=== PATIENT | male | born 1975 | race Caucasian/White ===

== ENCOUNTER 2017-06-14 12:05 | Emergency (ER) | payer OTHER, SELFPAY ==
[2017-06-14 12:19] VITALS: BP 163/99; PULSE 60; RESP 16; TEMP 37.1; O2SAT 99; BMI 29.0
--- NOTE | 2017-06-14 12:47 | HMH.EDUTC ---
[facility] [place] Disposition Clinical Impression: Low back pain Qualifiers: Chronicity: unspecified Back pain laterality: midline Sciatica presence: without sciatica Qualified Code(s): M54.5 - Low back pain Disposition: Home, Self-Care Condition on Discharge: Good Instructions: DI for Chronic Pain -- Adult, Low Back Pain, DI for Low Back Pain Additional Instructions: Take medication as prescribed FOllow up with family doctor if symptoms worsen Return if needed Prescriptions: Cyclobenzaprine HCl [Flexeril 10mg tablet] 10 mg PO TID PRN #20 tab PRN Reason: Muscle Pain Etodolac [Etodolac 200mg Cap] 200 mg PO Q6H PRN #20 cap PRN Reason: Moderate Pain Referrals: Eliseo Ruggiero MD [Primary Care Provider] - Saulo Weeks MD [Staff Physician] - Time of Disposition: 13:59 Medical Decision Making - Medical Records Medical records reviewed: Yes: I reviewed the patient's medical records. Vital Signs: 06/14/17 12:19 Temperature 98.7 F Temperature Source Temporal Artery Scan Pulse Rate [Right] 60 Respiratory Rate 16 Blood Pressure [Right Arm] 163/99 Blood Pressure Mean [Right Arm] 120 Blood Pressure Source [Right Arm] Automatic Cuff Blood Pressure Position [Right Arm] Sitting 02 Sat by Pulse Oximetry 99 Oxygen Delivery Method Room Air Orders (Tests/Meds): ED MEDICATIONS Discontinued Medications Generic Name Dose Route Start Last Admin Trade Name Freq PRN Reason Stop Dose Admin Ketorolac Tromethamine 60 mg 06/14/17 13:00 06/14/17 13:25 Toradol 60mg/2ml Vial IM 06/14/17 13:01 60 mg ONCE ONE Administration Methylprednisolone Sodium Succinate 125 mg 06/14/17 13:00 06/14/17 13:25 Solu-Medrol 125mg/2ml Vial IM 06/14/17 13:01 125 mg ONCE ONE Administration ORDERS Category Date Time Status XR lumbar spine min 4V Stat Exams 06/14/17 13:00 Taken - Radiology Data #1 Image(s): L-Spine Image Reviewed: Yes I reviewed the patient's radiology image w/the ED provider Preliminary Findings: No Fracture Seen - Salomon Inquiry Pt receiving controlled substance: No Salomon was queried for this patient: No - Reevaluation(s) Time: 13:25 [facility] [place] HPI - General Stated complaint: back pain Mode of Arrival: Ambulatory Source of Information: Patient Limitations: No Limitations Description of Symptoms (Recalled from Triage Doc. 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 State that he has had this pain before about a year ago and was given Steriod shot and it got better Now it has returned - Related Data Previous Rx's Medication Instructions Recorded Cyclobenzaprine HCl [Flexeril 10mg 10 mg PO TID PRN #20 tab 06/14/17 tablet] Etodolac [Etodolac 200mg Cap] 200 mg PO Q6H PRN #20 cap 06/14/17 Allergies Allergy/AdvReac Type Severity Reaction Status Date / Time No Known Allergies Allergy Verified 06/14/17 12:23 - Worker's Comp Is this a Worker's Comp case?: No [facility] History I have reviewed the patient's past medical history: Yes - *Social History Alcohol Intake: never - Psychiatric History Expresses thoughts of harming self/others: None Suicide Plan Description: No Plan ROS Obtained: Yes All systems reviewed & no additional complaints - Musculoskeletal Musculoskeletal: Reports back pain Physical Exam - General General appearance: alert, in no apparent distress - Respiratory Respiratory exam: Present: normal lung sounds bilaterally. Absent: respiratory distress - Cardiovascular Cardiovascular exam: Present: regular rate, normal rhythm. Absent: JVD
--- NOTE | 2017-06-14 12:55 | ED_ITS ---
[facility] [place] Impression: Low back pain Qualifiers: Chronicity: unspecified Back pain laterality: midline Sciatica presence: without sciatica Qualified Code(s): M54.5 - Low back pain Disposition: Home, Self-Care Condition on Discharge: Good Instructions: DI for Chronic Pain -- Adult, Low Back Pain, DI for Low Back Pain Additional Instructions: Take medication as prescribed FOllow up with family doctor if symptoms worsen Return if needed Prescriptions: Cyclobenzaprine HCl [Flexeril 10mg tablet] 10 mg PO TID PRN #20 tab PRN Reason: Muscle Pain Etodolac [Etodolac 200mg Cap] 200 mg PO Q6H PRN #20 cap PRN Reason: Moderate Pain Referrals: Eliseo Ruggiero MD [Primary Care Provider] - Saulo Weeks MD [Staff Physician] - Time of Disposition: 13:59 Medical Decision Making - Medical Records Medical records reviewed: Yes: I reviewed the patient's medical records. Vital Signs: 06/14/17 12:19 Temperature 98.7 F Temperature Source Temporal Artery Scan Pulse Rate [Right] 60 Respiratory Rate 16 Blood Pressure [Right Arm] 163/99 Blood Pressure Mean [Right Arm] 120 Blood Pressure Source [Right Arm] Automatic Cuff Blood Pressure Position [Right Arm] Sitting 02 Sat by Pulse Oximetry 99 Oxygen Delivery Method Room Air Orders (Tests/Meds): ED MEDICATIONS Discontinued Medications Generic Name Dose Route Start Last Admin Trade Name Freq PRN Reason Stop Dose Admin Ketorolac Tromethamine 60 mg 06/14/17 13:00 06/14/17 13:25 Toradol 60mg/2ml Vial IM 06/14/17 13:01 60 mg ONCE ONE Administration Methylprednisolone Sodium Succinate 125 mg 06/14/17 13:00 06/14/17 13:25 Solu-Medrol 125mg/2ml Vial IM 06/14/17 13:01 125 mg ONCE ONE Administration ORDERS Category Date Time Status XR lumbar spine min 4V Stat Exams 06/14/17 13:00 Taken - Radiology Data #1 Image(s): L-Spine Image Reviewed: Yes I reviewed the patient's radiology image w/the ED provider Preliminary Findings: No Fracture Seen - Salomon Inquiry Pt receiving controlled substance: No Salomon was queried for this patient: No - Reevaluation(s) Time: 13:25 [facility] [place] - General Stated complaint: back pain Mode of Arrival: Ambulatory Source of Information: Patient Limitations: No Limitations Description of Symptoms (Recalled from Triage Doc. 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 State that he has had this pain before about a year ago and was given Steriod shot and it got better Now it has returned - Related Data Previous Rx's Medication Instructions Recorded Cyclobenzaprine HCl [Flexeril 10mg 10 mg PO TID PRN #20 tab 06/14/17 tablet] Etodolac [Etodolac 200mg Cap] 200 mg PO Q6H PRN #20 cap 06/14/17 Allergies Allergy/AdvReac Type Severity Reaction Status Date / Time No Known Allergies Allergy
--- NOTE | 2017-06-14 13:00 | XR_ITS ---
XR lumbar spine min 4V Ordering Physician: Aditi Frod Patient Age: 42 years: Male HISTORY: ITS.REASON: low back pain Low back pain mainly midline on the left side on off one year. TECHNIQUE: 5 view lumbar spine COMPARISON :None available FINDINGS No acute fracture or findings of the lumbar spine. The disc spaces are fairly well-maintained throughout the lumbar spine when all images are reviewed . Pedicles, transverse processes SI joints intact. Smaller measuring ribs at T12. There is minor wedge configuration at L1 and T12 vertebral which appears old nature and could be merely congenital wedging rather than reflection of old compression fractures trauma... However History Correlation required. No prior studies for comparison. These features along along with mild disc space narrowing at T 12/L1 yields some minor accentuated kyphosis at thoracolumbar junction. Early marginal osteophytes most evident at T11, T12-L1. No spondylolysis nor listhesis. SI joints unremarkable. IMPRESSION: No acute fracture or findings. Mild disc space narrowing T12/L1. This along with minimal wedge configuration at T 12 & L1 vertebral slight accentuates kyphosis through the thoracolumbar junction. The minor wedging at T12 and L1 appears old and not recent. Could merely be congenital feature or less likely reflection of old trauma.
[2017-06-14 14:08] VITALS: BP 142/88; PULSE 70; RESP 18; TEMP 36.9
== END 2017-06-14 14:10 | disposition home or self-care (01) ==
PROVIDERS: Emergency Provider Nurse Practitioner; Family Provider Family Medicine; PCP Family Medicine
DX: M54.5 Low back pain (principal); M54.6 Pain in thoracic spine
CPT/HCPCS: 72110; 96372; 99202

== ENCOUNTER 2017-06-22 09:25 | Emergency (ER) | payer OTHER, SELFPAY ==
[2017-06-22 09:45] VITALS: BP 156/88; PULSE 95; RESP 20; TEMP 36.9; O2SAT 97; BMI 29.0
--- NOTE | 2017-06-22 10:10 | HMH.EDUTC ---
[facility] [place] Disposition Clinical Impression: Non-traumatic mid back pain Abdominal pain Qualifiers: Abdominal location: unspecified location Qualified Code(s): R10.9 - Unspecified abdominal pain Disposition: Still a Patient Condition on Discharge: Fair Time of Disposition: 10:36 (ER bed 11) Medical Decision Making Vital Signs: 06/22/17 09:45 Temperature 98.4 F Temperature Source Temporal Artery Scan Pulse Rate [Right Radial] 95 H Respiratory Rate 20 Blood Pressure [Right Arm] 156/88 Blood Pressure Mean [Right Arm] 110 02 Sat by Pulse Oximetry 97 Oxygen Delivery Method Room Air Orders (Tests/Meds): ORDERS Category Date Time Status CT abdomen pelvis w con Stat Cat Scan 06/22/17 10:[address] abdomen pelvis w con Stat Cat Scan 06/22/17 10:28 Stop Req Amylase Stat Lab 06/22/17 10:27 Ordered Complete Blood Count Auto Diff Stat Lab 06/22/17 10:27 Ordered Comprehensive Metabolic Panel Stat Lab 06/22/17 10:27 Ordered Lipase Stat Lab 06/22/17 10:27 Ordered Urinalysis and Microscopic Stat Lab 06/22/17 10:27 Uncollected - Physician Consults Physician Consulted: Dr. Evans, ER MD Time: 10:35 Reason -: Pt condition Comment/Response: Discussed PMHx, HPI, current exam. Transfer to ER for abdominal pain evaluation. Pt agreeable. room 11 available. Pt assisted over by me, placed in room 11, unable to urinate at this time. Candy aware pt in room. - Salomon Inquiry Pt receiving controlled substance: No [facility] [place] HPI - General Stated complaint: Back Hurting,knot on side Time Seen by Provider: 06/22/17 10:11 Mode of Arrival: Family Vehicle Source of Information: Patient Limitations: No Limitations Description of Symptoms (Recalled from Triage Doc. by RN): pt c/o chronic back pain and knot on the left side of his stomach. HEENT Symptoms (Recalled from RN notes): No Resp Symptoms (Recalled from RN notes): No Skin Symptoms (Recalled from RN notes): No MS Symptoms (Recalled from RN notes): Yes (chronic back pain, knot on left stomach) Functional Status (Recalled from RN notes): na - History of Present Illness Provider Complaint: c/o persistant nontraumatic left lower back pain x 2 weeks now. Started 2 weeks ago with no known injury. progressed. Was seen one week ago. Reports xray negative and dx muscular. Antiinflammatories, muscle relaxers, icy hot and heating pad not relieving or even improving pain. Worse with movement and laying down. Thursday, 5 days ago, noticed swelling left side of abdomen. Has worsened. Very painful as well. No additional treatment other than listed. - Related Data Previous Rx's Medication Instructions Recorded Cyclobenzaprine HCl [Flexeril 10mg 10 mg PO TID PRN #20 tab 06/14/17 tablet] Etodolac [Etodolac 200mg Cap] 200 mg PO Q6H PRN #20 cap 06/14/17 Allergies Allergy/AdvReac Type Severity Reaction Status Date / Time No Known Allergies Allergy Verified 06/14/17 12:23 - Worker's Comp Is this a Worker's Comp case?: No [facility] History I have reviewed the patient's past medical history: Yes (denies PMHx) Medical History: Denies:: Cancer, Diabetes Mellitus Type 1, Diabetes Mellitus Type 2, MRSA Other Surgeries: Yes: Other (denies abdominal surgeries) Amputation: No - Social History Smoking Status: Never smoker Alcohol Intake: never - Psychiatric History Expresses thoughts of harming self/others: None Suicide Plan Description: No Plan ROS Obtained: Yes Systems reviewed as appropriate & no additional complaints - Constitutional Constitutional: Denies fever(s), Denies poor appetite - Cardiovascular Cardiovascular: Denies chest pain, Denies irregular heart rhythm - Respiratory Respiratory: No cough, No dyspnea - Gastrointestinal Gastrointestingal: Reports: as per HPI. Denies: change in bowel habits, change in stool character, coffee ground emesis, vomiting blood, bright red blood in stools, black, tarry stools, nausea, vomiting - Genitourinary
--- NOTE | 2017-06-22 10:28 | CT_ITS ---
CT abdomen pelvis w con Ordering Physician: Flash Melgoza Patient Age: 42 years: Male HISTORY: ITS.REASON: left flank painswelling and fullness overlying the left flank. TECHNIQUE: Helical CT scanning performed the abdomen pelvis following 75 cc [id number]. Early portal venous phase images followed x 7 minutes m delayed imaging performed COMPARISON :Plain films lumbar spine 06/14/2017 FINDINGS . Mild atelectasis at the posterior lung bases right greater than left. Heart normal size. Calcified granuloma at the left lung base Abdomen: Liver. Low-density area just to the right of the falciform ligament attachment noted measuring 13 mm. Most likely reflecting area of focal fatty infiltration which is commonly encountered here at this specific site. This area fills in no longer evident on delayed images. . Spleen appears mildly elongated 15 cm length Pancreas is unremarkable. Adrenals unremarkable. Gallbladder. No calcified gallstones. Most likely merely septations towards the neck of the gallbladder seen on axial image 39, 41. Difficult to exclude minimal debris or sludge here. No bili ductal dilatation. Right kidney. Benign appearing cyst 2.6 x 3.5 cm extending from the anterior aspect of the mid right kidney. . GI tract. Minimal fluid throughout the small bowel. No bowel dilatation or obstruction. Large bowel with mild stool throughout. Upper normal wall thickness descending colon most likely reflecting lack of distention. No evidence of appendicitis. Appendix normal Slight increased fat left inguinal canal but no definitive bowel containing hernia. Stomach. Moderate contents in stomach including two 2.5cm Linear structures are seen at proximal stomach. Ingested food material of some form Urinary bladder, seminal vesicles and percent prostate with no significant appearing findings. Minimal calcification prostate. No retroperitoneal nor mesenteric adenopathy. T12/L1 disc space narrowing with slight irregularity at the posterior superior corner of L1 at midline which slightly indents anterior aspect of thecal sac.... Mild wedge configuration at L1 and T12 may reflect old trauma. At T11/12 is mild disc bulge and possible mild disc protrusion leftward indenting anterior thecal sac IMPRESSION No acute findings abdomen pelvis Minor incidental observations as in text.: ..... 3.6 cm most likely benign-appearing renal cyst ... Borderline/mild splenomegaly 15 cm length ... T11/12 with leftward disc bulge & possible minor protrusion to the left. ....Disc space Narrowing minimal observations at T12/L1 .
[2017-06-22 10:33] VITALS: BP 140/87; PULSE 84; RESP 16; TEMP 36.5; O2SAT 98; BMI 29.0
--- NOTE | 2017-06-22 10:36 | ED_ITS ---
[facility] Disposition Clinical Impression: Non-traumatic mid back pain Abdominal pain Qualifiers: Abdominal location: unspecified location Qualified Code(s): R10.9 - Unspecified abdominal pain Disposition: Still a Patient Condition on Discharge: Fair Time of Disposition: 10:36 (ER bed 11) Medical Decision Making Vital Signs: 06/22/17 09:45 Temperature 98.4 F Temperature Source Temporal Artery Scan Pulse Rate [Right Radial] 95 H Respiratory Rate 20 Blood Pressure [Right Arm] 156/88 Blood Pressure Mean [Right Arm] 110 02 Sat by Pulse Oximetry 97 Oxygen Delivery Method Room Air Orders (Tests/Meds): ORDERS Category Date Time Status CT abdomen pelvis w con Stat Cat Scan 06/22/17 10:[address] abdomen pelvis w con Stat Cat Scan 06/22/17 10:28 Stop Req Amylase Stat Lab 06/22/17 10:27 Ordered Complete Blood Count Auto Diff Stat Lab 06/22/17 10:27 Ordered Comprehensive Metabolic Panel Stat Lab 06/22/17 10:27 Ordered Lipase Stat Lab 06/22/17 10:27 Ordered Urinalysis and Microscopic Stat Lab 06/22/17 10:27 Uncollected - Physician Consults Physician Consulted: Dr. Evans, ER MD Time: 10:35 Reason -: Pt condition Comment/Response: Discussed PMHx, HPI, current exam. Transfer to ER for abdominal pain evaluation. Pt agreeable. room 11 available. Pt assisted over by me, placed in room 11, unable to urinate at this time. Candy aware pt in room. - Salomon Inquiry Pt receiving controlled substance: No [facility] HPI - General Stated complaint: Back Hurting,knot on side Time Seen by Provider: 06/22/17 10:11 Mode of Arrival: Family Vehicle Source of Information: Patient Limitations: No Limitations Description of Symptoms (Recalled from Triage Doc. by RN): pt c/o chronic back pain and knot on the left side of his stomach. HEENT Symptoms (Recalled from RN notes): No Resp Symptoms (Recalled from RN notes): No Skin Symptoms (Recalled from RN notes): No MS Symptoms (Recalled from RN notes): Yes (chronic back pain, knot on left stomach) Functional Status (Recalled from RN notes): na - History of Present Illness Provider Complaint: c/o persistant nontraumatic left lower back pain x 2 weeks now. Started 2 weeks ago with no known injury. progressed. Was seen one week ago. Reports xray negative and dx muscular. Antiinflammatories, muscle relaxers , icy hot and heating pad not relieving or even improving pain. Worse with movement and laying down. Thursday, 5 days ago, noticed swelling left side of abdomen. Has worsened. Very painful as well. No additional treatment other than listed. - Related Data Previous Rx's Medication Instructions Recorded Cyclobenzaprine HCl [Flexeril 10mg 10 mg PO TID PRN #20 tab 06/14/17 tablet] Etodolac [Etodolac 200mg Cap] 200 mg PO Q6H PRN #20 cap 06/14/17 Allergies Allergy/AdvReac Type Severity Reaction Status Date / Time No Known Allergies Allergy Verified 06/14/17 12:23 - Worker's Comp Is this a Worker's Comp case?: No [facility] History I have reviewed the patient's past medical history: Yes (denies PMHx) Medical History: Denies:: Cancer, Diabetes Mellitus Type 1, Diabetes Mellitus Type 2, MRSA Other Surgeries: Yes: Other (denies abdominal surgeries) Amputation: No - Social History Smoking Status: Never smoker Alcohol Intake: nev
[2017-06-22 10:51] LABS: Eosinophils # 0.1 K/mm3 (0.0-0.4); Lymphocytes # 1.4 K/mm3 (0.7-4.5); Monocytes # 0.4 K/mm3 (0.1-1.0)
[2017-06-22 10:58] LABS: Basophils % 0.6 % (0.1-2.0); Eosinophils % 1.3 % (0.1-12.0); Hematocrit 52.8 % (42.0-52.0); Lymphocytes % 26.1 K/mm3 (10-50); Mean Corpuscular HGB Conc 34.6 g/dL (31.8-35.4); Mean Corpuscular Hemoglobin 29.1 pg (27.0-31.2); Mean Corpuscular Volume 84.1 fl (80-94); Mean Platelet Volume 7.7 fl (7.4-10.4); Monocytes % 6.6 % (1.7-9.3); Neutrophils # 3.5 K/mm3 (1.8-7.8); Neutrophils % 65.4 % (37.0-80.0); Platelet Count 215 K/mm3 (142-424); Red Blood Count 6.27 M/mm3 (4.60-6.20); Red Cell Distribution Width 13.4 % (11.5-17.5); White Blood Count 5.3 K/mm3 (4.8-10.8)
[2017-06-22 11:03] LABS: Hemoglobin 18.2 g/dL (14.1-18.0)
[2017-06-22 11:19] LABS: Alanine Aminotransferase 37 U/L (12-78); Albumin Level 4.5 gm/dL (3.4-5.0); Albumin/Globulin Ratio 1.3 (1.1-1.8); Amylase 42 U/L (25-125); Anion Gap 14.1 mEq/L (5-15); Aspartate Amino Transferase 17 U/L (15-37); Bilirubin,Total 0.6 mg/dL (0.2-1.0); Blood Urea Nitrogen 9 mg/dL (7-18); Calcium 9.1 mg/dL (8.5-10.1); Carbon Dioxide 28 mmol/L (21.0-32.0); Chloride 103 mmol/L (98-107); Creatinine Clearance Estimated 133 mL/min (0-300); Creatinine,Serum 1.04 mg/dL (0.70-1.30); Estimated Glomerular Filt Rate 79 ml/min (>60); GFR (African American) 96 ML/MIN (>60); Globulin 3.4 gm/dl (1.3-3.2); Glucose 100 mg/dL (74-106); Lipase 147 u/L (73-393); Potassium 4.1 mmoL/L (3.5-5.1); Sodium 141 mmol/L (136-145); Total Protein,Serum 7.9 gm/dL (6.4-8.2)
[2017-06-22 12:32] LABS: Alkaline Phosphatase 79 U/L (46-116)
[2017-06-22 12:45] LABS: Microscopic, Urine URINE MICROSCOPIC (MICROSCOPIC)
[2017-06-22 12:49] LABS: Appearance,Urine SL CLOUDY (Clear); Blood, Urine Negative (Negative); Color,Urine YELLOW (Yellow); Glucose,Urine (UA) Negative (Negative); Ketones,Urine Negative (Negative); Leukocyte Esterase,Urine Negative (Negative); Nitrate,Urine Negative (Negative); Protein,Urine Negative (Negative); Urobilinogen,Urine 0.2 EU/dl (0.2)
--- NOTE | 2017-06-22 12:55 | HMH.EDABDPAI ---
ED Disposition Clinical Impression: Non-traumatic mid back pain Abdominal pain Qualifiers: Abdominal location: unspecified location Qualified Code(s): R10.9 - Unspecified abdominal pain Low back pain Qualifiers: Chronicity: acute Back pain laterality: left Sciatica presence: without sciatica Qualified Code(s): M54.5 - Low back pain Disposition: Still a Patient Instructions: Thoracic Back Pain Additional Instructions: Please take the medications prescribed as directed, schedule follow-up appointment with Dr. Keegan Sol in [place], within next 2-[address] scan of the abdomen and pelvis has indicated that T11-T12 disc bulge, which is the likely explanation of your left flank pain/discomfort. Prescriptions: Etodolac [Etodolac 200mg Cap] 200 mg PO BID #20 cap Referrals: Eliseo Ruggiero MD [Primary Care Provider] - Keegan Sol [Referring] - Time of Disposition: 12:58 - Critical Care Critical Care Time: No Attestation: On 06/22/17, the high probability of a clinically significant, sudden or life threatening deterioration of the following system(s) required my full and direct attention, intervention and personal management. The time I documented below is in addition to time spent performing reported procedures but includes the following listed in this critical care notation. Medical Decision Making Vital Signs: 06/22/17 09:45 06/22/17 10:33 Temperature 98.4 F 97.7 F Temperature Source Temporal Artery Scan Oral Pulse Rate [Right Radial] 95 H 84 Respiratory Rate 20 16 Blood Pressure [Right Arm] 156/88 140/87 Blood Pressure Mean [Right Arm] 110 104 Blood Pressure Source [Right Arm] Automatic Cuff Blood Pressure Position [Right Arm] Sitting 02 Sat by Pulse Oximetry 97 98 Oxygen Delivery Method Room Air Room Air - Lab Data Lab Results 06/22/17 10:35: WBC 5.3, RBC 6.27 H, Hgb 18.2 H*, Hct 52.8 H, MCV 84.1, MCH 29.1, MCHC 34.6, RDW 13.4, Plt Count 215, MPV 7.7, Neut % (Auto) 65.4, Lymph % (Auto) 26.1, Bertie % (Auto) 6.6, Eos % (Auto) 1.3, Baso % (Auto) 0.6, Neut # (Auto) 3.5, Lymph # (Auto) 1.4, Bertie # (Auto) 0.4, Eos # (Auto) 0.1, Baso # (Auto) 0.0 06/22/17 10:35: Sodium 141, Potassium 4.1, Chloride 103, Carbon Dioxide 28, Anion Gap 14.1, BUN 9, Creatinine 1.04, Estimated Creat Clear 133, Estimated GFR 79, Est GFR ( Amer) 96, Glucose 100, Calcium 9.1, Total Bilirubin 0.6, AST 17, ALT 37, Alkaline Phosphatase 79, Total Protein 7.9, Albumin 4.5, Globulin 3.4 H, Albumin/Globulin Ratio 1.3, Amylase 42, Lipase 147 Result diagrams: 06/22/17 10:35 06/22/17 10:35 Orders (Tests/Meds): ED MEDICATIONS Discontinued Medications Generic Name Dose Route Start Last Admin Trade Name Freq PRN Reason Stop Dose Admin Ketorolac Tromethamine 30 mg 06/22/17 10:48 06/22/17 10:52 Toradol 30mg/Ml Vial IV 06/22/17 10:49 30 mg ONCE ONE Administration Ondansetron HCl 4 mg 06/22/17 10:48 06/22/17 10:51 Zofran 4mg/2ml Vial IV 06/22/17 10:49 4 mg ONCE ONE Administration ORDERS Category Date Time Status CT abdomen pelvis w con Stat Cat Scan 06/22/17 10:28 Taken UDS [Drug Screen,Urine] Stat Lab 06/22/17 12:35 Received Urinalysis and Microscopic Stat Lab 06/22/17 12:35 Received Abdominal Pain HPI - General Chief Complaint: Abdominal Pain Stated Complaint: Back Hurting,knot on side Time Seen by Provider: 06/22/17 10:11 Mode of Arrival: Family Vehicle Source of Information: Patient Limitations: No Limitations Description of Symptoms (Recalled from ER Triage Doc. by RN): pt c/o chronic back pain and knot on the left side of his stomach. - History of Present Illness MD complaint: flank pain (left) - Related Data Previous Rx's Medication Instructions Recorded Etodolac [Etodolac 200mg Cap] 200 mg PO BID #20 cap 06/22/17 Allergies Allergy/AdvReac Type Severity Reaction Status Date / Time No Known Allergies Allergy Verified 06/14/17 12:23
[2017-06-22 12:56] VITALS: BP 151/67; PULSE 73; RESP 16; TEMP 36.6; O2SAT 100
--- NOTE | 2017-06-22 12:58 | ED_ITS ---
ED Disposition Clinical Impression: Non-traumatic mid back pain Abdominal pain Qualifiers: Abdominal location: unspecified location Qualified Code(s): R10.9 - Unspecified abdominal pain Low back pain Qualifiers: Chronicity: acute Back pain laterality: left Sciatica presence: without sciatica Qualified Code(s): M54.5 - Low back pain Disposition: Home, Self-Care Condition on Discharge: Good Instructions: Thoracic Back Pain Additional Instructions: Please take the medications prescribed as directed, schedule follow-up appointment with Dr. Keegan Sol in [place], within next 2-[address] scan of the abdomen and pelvis has indicated that T11-T12 disc bulge, which is the likely explanation of your left flank pain/discomfort. Prescriptions: Etodolac [Etodolac 200mg Cap] 200 mg PO BID #20 cap Referrals: Eliseo Ruggiero MD [Primary Care Provider] - Keegan Sol [Referring] - Time of Disposition: 12:58 - Critical Care Critical Care Time: No Attestation: On 06/22/17, the high probability of a clinically significant, sudden or life threatening deterioration of the following system(s) required my full and direct attention, intervention and personal management. The time I documented below is in addition to time spent performing reported procedures but includes the following listed in this critical care notation. Medical Decision Making - Medical Records Medical records reviewed: Yes: I reviewed the patient's medical records. Vital Signs: 06/22/17 09:45 06/22/17 10:33 06/22/17 12:56 Temperature 98.4 F 97.7 F 97.9 F Temperature Source Temporal Artery Scan Oral Oral Pulse Rate Pulse Rate [Right Radial] 95 H 84 73 Respiratory Rate 20 16 16 Blood Pressure Blood Pressure [Right Arm] 156/88 140/87 151/67 Blood Pressure Mean [Right Arm] 110 104 95 Blood Pressure Source Blood Pressure Source [Right Arm] Automatic Cuff Automatic Cuff Blood Pressure Position Blood Pressure Position [Right Arm] Sitting Sitting 02 Sat by Pulse Oximetry 97 98 100 Oxygen Delivery Method Room Air Room Air Room Air 06/22/17 13:09 Temperature 97.9 F Temperature Source Pulse Rate 73 Pulse Rate [Right Radial] Respiratory Rate 16 Blood Pressure 151/67 Blood Pressure [Right Arm] Blood Pressure Mean [Right Arm] Blood Pressure Source Automatic Cuff Blood Pressure Source [Right Arm] Blood Pressure Position Sitting Blood Pressure Position [Right Arm] 02 Sat by Pulse Oximetry Oxygen Delivery Method Room Air - Lab Data Lab results reviewed: Yes: I reviewed the patient's lab results. Lab Results 06/22/17 10:35: WBC 5.3, RBC 6.27 H, Hgb 18.2 H*, Hct 52.8 H, MCV 84.1, MCH 29.1 , MCHC 34.6, RDW 13.4, Plt Count 215, MPV 7.7, Neut % (Auto) 65.4, Lymph % (Auto ) 26.1, Delta % (Auto) 6.6, Eos % (Auto) 1.3, Baso % (Auto) 0.6, Neut # (Auto) 3.5, Lymph # (Auto) 1.4, Delta # (Auto) 0.4, Eos # (Auto) 0.1, Baso # (Auto) 0.0 06/22/17 10:35: Sodium 141, Potassium 4.1, Chloride 103, Carbon Dioxide 28, Anion Gap 14.1, BUN 9, Creatinine 1.04, Estimated Creat Clear 133, Estimated GFR 79, Est GFR ( Amer) 96, Glucose 100, Calcium 9.1, Total Bilirubin 0.6 , AST 17, ALT 37, Alkaline Phosphatase 79, Total Protein 7.9, Albumin 4.5, Globulin 3.4 H, Albumin/Globulin Ratio 1.3, Amylase 42, Lipase 147 06/22/17 12:35: Urine Opiates Screen
[2017-06-22 13:03] LABS: Amphetamine/Metha Screen,Urine Negative ng/mL (<1000); Barbiturates Screen,Urine Negative ng/mL (<200); Benzodiazepines Screen,Urine Negative ng/mL (200); Cannabinoid Screen,Urine Positive ng/mL (<50); Cocaine Screen,Urine Negative ng/g (<300); Methadone Screen,Urine Negative ng/mL (<300); Opiate Screen,Urine Negative ng/mL (<300); Phencyclidine Screen,Urine Negative ng/mL (<25)
[2017-06-22 13:09] VITALS: BP 151/67; PULSE 73; RESP 16; TEMP 36.6; O2SAT 100
[2017-06-22 13:14] LABS: Bilirubin,Urine Negative (Negative)
[2017-06-22 13:15] LABS: Bacteria,Urine Trace /lpf; WBC,Urine Occasional #/hpf (0-3)
== END 2017-06-22 13:13 | disposition home or self-care (01) ==
LOC: UTC 09:29 → ER 10:29
PROVIDERS: Emergency Medicine; Emergency Provider Nurse Practitioner Family; Family Provider Family Medicine; PCP Family Medicine
DX: M54.89 Other dorsalgia (principal); R10.9 Unspecified abdominal pain
CPT/HCPCS: 74177; 80053; 80305; 81001; 82150; 83690; 85025; 96374; 96375; 99284; J2405